=== PATIENT | male | born 1965 | race Caucasian/White ===

== ENCOUNTER → 2023-06-20 | Emergency (ER) | payer OTHER ==
[~2023-06-20] MED LIST: LORazepam 2 MG/ML VIAL ONE
[2023-06-20 14:02] LABS: Absolute Basophils 0.1 K/uL (0-0.5); Absolute Eosinophils 0.1 K/uL (0-0.5); Absolute Lymphocytes (CBC) 1.1 K/uL (0.7-4.9); Absolute Monocytes 0.3 K/uL (0.1-1.3); Absolute Neutrophil 4.6 K/uL (1.8-8.0); Basophils % 0.8 % (0-1.3); Hematocrit 45.4 % (39.6-49.0); Hemoglobin 15.8 g/dL (13.6-17.9); Lymphocytes % 18.3 % (15.3-44.8); MCH 33.1 pg (27.0-35.0); MCHC 34.8 g/dL (32.0-36.0); MCV 95.1 fL (80-100); Monocytes % 5.7 % (3.3-12.3); Neutrophils % 74.2 % (41.7-73.7); Platelets 169 thou/uL (152-406); RBC Red Blood Cell Count 4.77 M/uL (4.33-5.43)
[2023-06-20 15:03] LABS: Albumin 3.9 g/dL (3.4-5.0); Albumin/Globulin Ratio 1.3 (1.1-1.8); Anion Gap 6.9 mEq/L (5.0-15.0); Bilirubin Total 0.3 mg/dL (0.2-1.0); Potassium 3.9 mEq/L (3.5-5.1); Protein, Total 6.9 g/dL (6.4-8.2)
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
[2023-06-20 16:25] VITALS: BP 115/77; TEMP 97.6; O2SAT 100
== END ==
LOC: ER 13:26
DX: S20.212A Contusion of left front wall of thorax, initial encounter (principal); G40.89 Other seizures; V49.40XA Driver injured in collision with unspecified motor vehicles in traffic accident, initial encounter; F17.210 Nicotine dependence, cigarettes, uncomplicated
CPT/HCPCS: 36415; 80053; 85025